=== PATIENT | female | born 1960 | race Hispanic/Latino ===

== ENCOUNTER → 2025-05-19 | Outpatient (REF) | payer MEDICARE | LOC: US 12:39 | PROVIDERS: ATTEND Internal Medicine | DX: Z12.31 Encounter for screening mammogram for malignant neoplasm of breast (principal); M85.88 Other specified disorders of bone density and structure, other site; E04.9 Nontoxic goiter, unspecified | CPT/HCPCS: 76536; 77067; 77080 ==